=== PATIENT | female | born 1985 | race Caucasian/White ===

== ENCOUNTER 2016-12-24 15:34 | Emergency (ER) | payer SELFPAY ==
[~2016-12-24] VITALS: Ht 168.9 cm; Wt 61.3 kg
[~2016-12-24 15:34] MED LIST: ALBU18HF2 ORAL INH; NO ROUTINE MEDS; PREN1TAB73 PO
[2016-12-24 15:36] VITALS: Ht 168.9 cm; Wt 61.3 kg
[2016-12-24] MEDS ORDERED: ACET-62 PO (15:53)
[2016-12-24] MEDS ORDERED: IBUP-1724 PO (15:53)
--- NOTE | 2016-12-24 16:13 | NUR ---
RADIOLOGY PT TO RADIOLOGY BY W/C AT THIS TIME.
--- NOTE | 2016-12-24 17:05 | NUR ---
STATUS PT SITTING UPRIGHT IN CHAIR. REPORTS PAIN STILL 02/24. DENIES FURTHER NEEDS. VS STABLE. PROVIDER NOTIFIED OF PAIN, NO NEW ORDERS REC'D.
[2016-12-24] MEDS ORDERED: HYDR-4246 PO (17:14)
[2016-12-24] MEDS ORDERED: ONDA4TAB7 PO (17:14)
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
[2016-12-24] MEDS ORDERED: HYDROCODONE/APAP 5 mg/325 mg TABLET PO ONE (17:15)
[2016-12-24 17:28] VITALS: BP 120/85; PULSE 86; RESP 20; TEMP 97.8; O2SAT 98
--- NOTE | 2016-12-24 17:28 | NUR ---
DISCHARGE WRITTEN INSTRUCTIONS WITH [facility] AND [facility]OFRAN RX REVIEWED AND SENT WITH PT. PT VERBALIZES UNDERSTANDING OF DI AND MEDICATIONS, DENIES QUESTIONS. PT AMBULATES OUT OF ER WITH STEADY GAIT ACCOMP BY GRINDER BRAKE LINING AT THIS TIME.
--- NOTE | 2016-12-24 22:14 | DI ---
Indication: ITS.REASON: pain PROCEDURE: CLAVICLE LEFT: Encounter: Initial Comparison: January 28, 2013 Findings: There is no acute fracture, dislocation or malalignment identified. Healed prior internally fixed left clavicular fracture. Impression: No acute osseous abnormality. .
--- NOTE | 2016-12-24 22:14 | DI ---
Indication: ITS.REASON: Right rib pain after a fall PROCEDURE: RIBS RIGHT WITH AP CHEST: Encounter: Initial Comparison: None FINDINGS: Chest: The lungs are clear. There is no abnormal airspace opacity, pleural effusion or pneumothorax identified. The heart size, pulmonary vasculature and mediastinum are within normal limits. AP and oblique views of the right ribs: No displaced rib fracture is seen. IMPRESSION: No acute cardiopulmonary abnormality. There is a preliminary report by [facility]. .
== END 2016-12-24 17:28 | disposition home or self-care (01) ==
LOC: ED 15:34
DX: S20.221A Contusion of right back wall of thorax, initial encounter (principal); X58.XXXA Exposure to other specified factors, initial encounter; Y93.89 Activity, other specified; Y92.009 Unspecified place in unspecified non-institutional (private) residence as the place of occurrence of the external cause; Y99.8 Other external cause status